=== PATIENT | male | born 1955 | race American Indian/Alaskan Native ===

== ENCOUNTER 2017-08-29 11:59 | Emergency (ER) | payer MEDICARE ==
[2017-08-29 13:47] LABS: Basophils % (Auto) 0.5 % (0.0-1.8); Eosinophils % (Auto) 3.1 % (0.0-4.3); Hematocrit 39.3 % (35.5-45.6); Hemoglobin 12.7 gm/dl (11.8-15.2); Mean Corpuscular HGB Conc 32 % (32-34); Mean Corpuscular Hemoglobin 27 pg (28-32); Mean Corpuscular Volume 85 fl (84-94); Platelet Count 133 K/mm3 (140-440); Red Blood Count 4.63 M/mm3 (3.65-5.03); Red Cell Distribution Width 15.1 % (13.2-15.2); White Blood Count 5.9 K/mm3 (4.5-11.0)
[2017-08-29 14:00] LABS: Anion Gap 18 mmol/L; BUN/Creatinine Ratio 16; Blood Urea Nitrogen 11 mg/dL (9-20); Carbon Dioxide 23 mmol/L (22-30); Chloride 101.6 mmol/L (98-107); Glucose 110 mg/dL (75-100); Potassium 4.1 mmol/L (3.6-5.0); Sodium 138 mmol/L (137-145)
[2017-08-29] MEDS ORDERED: TORADOL IM ONE (19:58)
[2017-08-29] MEDS ORDERED: PERCOCET 5/325 PO ONE (19:58)
--- NOTE | 2017-08-29 21:08 | Emergency Department Report ---
ED Chest Pain HPI - General Chief Complaint: Chest Pain Stated Complaint: CHEST PAIN Time Seen by Provider: 08/29/17 19:39 Source: patient Mode of arrival: Ambulatory Limitations: No Limitations - History of Present Illness Initial Comments: 61-year-old male with a past medical history hypertension presents to us complaining of right-sided chest pain 2 weeks. Pain is right lower lateral chest wall described as a aching with intermittent stabbing. Patient feels like he is having intermittent spasms. Pain is rated 7/10 intensity worse with cough, movement, palpation, or deep inspiration. With chest spasms patient has worsening pain and associated shortness of breath. Otherwise patient denies dyspnea on exertion, recent travel, calf tenderness, history of PE/DVT, cough, fever, nausea, vomiting, or diaphoresis. No injury reported. Patient does have the PMD. Severity scale (0 -10): 10 - Related Data Previous Rx's Medication Instructions Recorded Last Taken Type HYDROcodone/APAP 5-325 [[place] 1 each PO Q6HR PRN #20 tablet 08/29/17 Unknown Rx 5/325] Ibuprofen [Motrin] 800 mg PO Q8HR PRN #30 tablet 08/29/17 Unknown Rx Allergies Allergy/AdvReac Type Severity Reaction Status Date / Time No Known Allergies Allergy Verified 08/29/17 12:37 Heart Score - HEART Score History: Slightly suspicious EKG: Non-specific Age: 45-65 Risk factors: 1-2 risk factors Troponin: < normal limit HEART Score: 3 ED Review of Systems ROS: Stated complaint: CHEST PAIN Other details as noted in HPI Comment: All other systems reviewed and negative Other: Constitutional: No fevers chills Eyes: No eye pain visual changes ENT: No ear pain or throat pain Neck: Denies pain Respiratory: Denies cough wheezing Cardiovascular: Denies palpitations, syncope GI: Denies abdominal pain, nausea, vomiting, diarrhea : Denies dysuria Musculoskeletal: Denies back pain Skin: Denies rash, lesions, erythema Neurologic: Denies headache, numbness, weakness Psychiatric: Denies suicidal ideation, hallucinations ED Past Medical Hx - Past Medical History Previous Medical History?: Yes Hx Hypertension: Yes - Surgical History Past Surgical History?: No - Social History Smoking Status: Never Smoker Substance Use Type: None - Medications Home Medications: Home Medications Medication Instructions Recorded Confirmed Last Taken Type HYDROcodone/APAP 5-325 [[place] 1 each PO Q6HR PRN #20 tablet 08/29/17 Unknown Rx 5/325] Ibuprofen [Motrin] 800 mg PO Q8HR PRN #30 tablet 08/29/17 Unknown Rx ED Physical Exam - General Limitations: No Limitations - Other Other exam information: General: No limitations, patient is alert in no acute distress Head exam: Atraumatic, normocephalic Eyes exam: Normal appearance, pupils equal reactive to light, extraocular movements intact ENT: Moist mucous membrane, normal oropharynx Neck exam: Normal inspection, full range of motion, no meningismus nontender Respiratory exam: Clear to auscultation bilateral, no wheezes, rales, crackles Cardiovascular: Normal rate and rhythm, normal heart sounds. Reproducible right lower anterolateral rib tenderness to palpation at one specific area. Also worse with movement Abdomen: Soft, nondistended, and nontender, with normal bowel sounds, no rebound, or guarding Extremity: Full range of motion normal inspection no deformity, no calf tenderness or edema Back: Normal Inspection, full range of motion, no tenderness Neurologic: Alert, oriented x3, cranial nerves intact, no motor or sensory deficit Psychiatric: normal affect, normal mood Skin: Warm, dry, intact ED Course Vital Signs 08/29/17 08/29/17 08/29/17 12:28 12:30 18:52 Temperature 98.1 F 98.4 F Pulse Rate 79 62 Respiratory 18 18 18 Rate Blood Pressure 137/92 137/92 Blood Pressure 155/89 [Left] O2 Sat by Pulse 99 100 Oximetry 08/29/17 20:00 Temperature Pulse Rate 61 Respiratory 16 Rate Blood Pressure Blood Pressure 154/91 [Left] O2 Sat by Pulse 97 Oximetry - Reevaluation(s) Reevaluation #1: 08/29/17 21:13 Patient treated with Percocet and Toradol АНДРЕЙ score - Андрей Score Age > 65: (0) No Aspirin use within the Past 7 Days: (0) No 3 or more CAD Risk Factors: (0) No 2 or more Angina events in past 24 hrs: (0) No Known CAD with more than 50% Stenosis: (0) No Elevated Cardiac Markers: (0) No ST Deviation Greater than 0.5mm: (0) No АНДРЕЙ Score: 0 ED Medical Decision Making - Lab Data Result diagrams: 08/29/17 13:08 08/29/17 13:08 Lab Results 08/29/17 08/29/17 08/29/17 Range/Units 13:08 13:08 15:12 WBC 5.9 (4.5-11.0) K/mm3 RBC 4.63 (3.65-5.03) M/mm3 Hgb 12.7 (11.8-15.2) gm/dl Hct 39.3 (35.5-45.6) % MCV 85 (84-94) fl MCH 27 L (28-32) pg MCHC 32 (32-34) % RDW 15.1 (13.2-15.2) % Plt Count 133 L (140-440) K/mm3 Lymph % (Auto) 21.4 (13.4-35.0) % Wallace % (Auto) 7.7 H (0.0-7.3) % Eos % (Auto) 3.1 (0.0-4.3) % Baso % (Auto) 0.5 (0.0-1.8) % Lymph # 1.3 (1.2-5.4) K/mm3 Wallace # 0.5 (0.0-0.8) K/mm3 Eos # 0.2 (0.0-0.4) K/mm3 Baso # 0.0 (0.0-0.1) K/mm3 Seg Neutrophils % 67.3 (40.0-70.0) % Seg Neutrophils # 4.0 (1.8-7.7) K/mm3 Sodium 138 (137-145) mmol/L Potassium 4.1 (3.6-5.0) mmol/L Chloride 101.6 (98-107) mmol/L Carbon Dioxide 23 (22-30) mmol/L Anion Gap 18 mmol/L BUN 11 (9-20) mg/dL Creatinine 0.7 L (0.8-1.5) mg/dL Estimated GFR > 60 ml/min BUN/Creatinine Ratio 16 % Glucose 110 H (75-100) mg/dL Calcium 9.0 (8.4-10.2) mg/dL Troponin T < 0.010 < 0.010 (0.00-0.029) ng/mL 08/29/17 Range/Units 18:11 WBC (4.5-11.0) K/mm3 RBC (3.65-5.03) M/mm3 Hgb (11.8-15.2) gm/dl Hct (35.5-45.6) % MCV (84-94) fl MCH (28-32) pg MCHC (32-34) % RDW (13.2-15.2) % Plt Count (140-440) K/mm3 Lymph % (Auto) (13.4-35.0) % Wallace % (Auto) (0.0-7.3) % Eos % (Auto) (0.0-4.3) % Baso % (Auto) (0.0-1.8) % Lymph # (1.2-5.4) K/mm3 Wallace # (0.0-0.8) K/mm3 Eos # (0.0-0.4) K/mm3 Baso # (0.0-0.1) K/mm3 Seg Neutrophils % (40.0-70.0) % Seg Neutrophils # (1.8-7.7) K/mm3 Sodium (137-145) mmol/L Potassium (3.6-5.0) mmol/L Chloride (98-107) mmol/L Carbon Dioxide (22-30) mmol/L Anion Gap mmol/L BUN (9-20) mg/dL Creatinine (0.8-1.5) mg/dL Estimated GFR ml/min BUN/Creatinine Ratio % Glucose (75-100) mg/dL Calcium (8.4-10.2) mg/dL Troponin T < 0.010 (0.00-0.029) ng/mL - EKG Data -: EKG Interpreted by Me (sinus rate 77, LVH, inferior T wave) - EKG Data When compared to previous EKG there are: previous EKG unavailable - Radiology Data Radiology results: image reviewed (chest x-ray: No acute findings) - Medical Decision Making Patient has reproducible chest wall tenderness on the right side of the chest. Chest x-ray is unremarkable. Patient does have inferior T-wave and abilities but has no other signs of HI next left-sided chest pain. Cardiac enzymes negative 3. No DVT symptoms or risk factors reported - Differential Diagnosis MSK pain, costochondritis, pleurisy, pneumothorax, PE, Critical Care Time: No Critical care attestation.: If time is entered above; I have spent that time in minutes in the direct care of this critically ill patient, excluding procedure time. ED Disposition Clinical Impression: Chest wall pain Disposition: OP ADMIT IP TO THIS HOSP Is pt being admited?: No Condition: Stable Instructions: Thoracic Pain (ED) Additional Instructions: Take the medication as prescribed. Follow-up with your primary care doctor for further evaluation. Please return if symptoms worsen Prescriptions: HYDROcodone/APAP 5-325 [[place] 5/325] 1 each PO Q6HR PRN #20 tablet PRN Reason: Pain Ibuprofen [Motrin] 800 mg PO Q8HR PRN #30 tablet PRN Reason: Pain Referrals: [facility]OURT[facility], [facility] [Primary Care Provider] - 3-5 Days Time of Disposition: 21:18
[2017-08-29 21:35] VITALS: BP 165/96
--- NOTE | 2017-08-30 10:00 | XRay Report ---
AP CHEST: HISTORY: Right chest pain AP view of the chest demonstrates a normal mediastinal and cardiac contour with clear lungs and normal bony and soft tissue structures. No rib deformity detected on portable chest. IMPRESSION: Unremarkable AP chest.
== END 2017-08-29 21:24 | disposition admitted as inpatient to this hospital (09) ==
LOC: ED 11:59
DX: R07.89 Other chest pain (principal); I10 Essential (primary) hypertension
CPT/HCPCS: 36415; 71010; 80048; 84484; 85025; 93005; 93010; 96372; 99284; J1885